=== PATIENT | male | born 1975 | race Caucasian/White ===

== ENCOUNTER 2017-03-22 22:54 | Emergency (ER) | payer OTHER | END 2017-03-23 00:21 | disposition home or self-care (01) | LOC: FER 22:54 | DX: L02.412 Cutaneous abscess of left axilla (principal); B95.62 Methicillin resistant Staphylococcus aureus infection as the cause of diseases classified elsewhere; B86 Scabies; F17.200 Nicotine dependence, unspecified, uncomplicated | CPT/HCPCS: 99283 ==